=== PATIENT | female | born 2000 | race African-American/Black ===

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

== ENCOUNTER 2020-05-18 07:44 | Emergency (ER) | payer BC, MEDICAID ==
[~2020-05-18] VITALS: Ht 157.5 cm; Wt 52.2 kg
[2020-05-18 07:46] VITALS: BP 108/68
--- NOTE | 2020-05-18 07:56 | NUR ---
ED Nurse Note: Patient from home and walked in due to abd pain with nausea x 2 days. Patient states that her pain is worse after eating meals especially spicy foods. Patient is AAO x4, ambulates with steady gait. No respiratory distress. Calm and cooperative.
[2020-05-18] MEDS ORDERED: Lidocaine 2% Visc 15ml soln ORAL ONE (08:15)
[2020-05-18] MEDS ORDERED: Mylanta II UD 30ml ORAL ONE (08:15)
--- NOTE | 2020-05-18 08:15 | Emergency Room Report ---
History of Present Illness General Chief Complaint: Abdominal Pain Source: Patient Present Illness HPI Patient presents with 2 days of epigastric pain and nausea. She denies vomiting. She has had loose stools that have been the color of what ever she is eating. She denies any hematochezia or bright red blood or melena. She denies dysuria. The pain is rated 9/10 at this time and nonradiating. It feels so mewhat burning. Because she had pain she was taking ibuprofen that was prescribed for tooth operation. The last dose was yesterday. She read that it might be contributing to the pain so she stopped. She denies fevers or chills. She is never been evaluated for this problem before. Patient denies being exposed to COVID-19 positive contacts. Patient is on Depo-Provera. Her menstruation is irregular. She believes she had a fairly normal period a month ago. She denies dysuria or vaginal discharge. The patient states she has anemia. She is taking iron. No sore throat, chest pain, palpitations, shortness of breath, joint pain, rashes, dizziness, headache. Allergies: Coded Allergies: No Known Allergies (Unverified , 01/06/19) COVID-19 Screening Contact w/high risk pt: No Experienced COVID-19 symptoms?: No COVID-19 Testing performed [employer]: Yes - a month ago COVID-19 Screening: Negative COVID-19 COVID-19 Testing Source: [place] Patient History Past Medical History: see triage record, asthma Social History: Reports: drug use - See tox, THC; Denies: smoking, alcohol use Social History Narrative at home with Mom, drove herself to the emergency department Last Menstrual Period: on control Now: No Reviewed Nursing Documentation: PMH: Agreed; PSxH: Agreed Nursing Documentation-PMH Hx Asthma: Yes Review of Systems All Other Systems: negative except mentioned in HPI Physical Exam Vital Signs Date Time Temp Pulse Resp B/P (MAP) Pulse Ox O2 Delivery O2 Flow Rate FiO2 05/18/20 07:46 98.2 65 19 108/68 98 Room Air Sp02 EP Interpretation: reviewed, normal General Appearance: well appearing, no apparent distress, GCS 15 Head: normocephalic Eyes: bilateral eye normal inspection, bilateral eye PERRL, bilateral eye Scleral Injection ENT: moist mucus membranes Neck: supple Respiratory: lungs clear, normal breath sounds Cardiovascular #1: regular rate, rhythm Cardiovascular #2: 2+ radial (R) Gastrointestinal: normal inspection, normal bowel sounds, no mass, non- distended, no guarding, no rebound, tenderness - Epigastric Genitourinary: no CVA tenderness Musculoskeletal: back normal, normal range of motion, gait/station normal Neurologic: alert, oriented x3, grossly normal Psychiatric: mood/affect normal Skin: no rash, warm/dry, other - Slightly pale Medical Decision Making Diagnostic Impression: Primary Impression: Gastritis Qualified Codes: K29.00 - Acute gastritis without bleeding Additional Impression: THC use ER Course Patient presents with epigastric pain with nausea for 2 days. Differential includes gastritis, gallbladder disease, pancreatitis, peptic ulcer disease, UTI amongst others. We need to exclude . Patient evaluated with labs. She has a nonsurgical abdomen at this time and x-rays are not indicated. Low suspicion for COVID-19. Patient will be treated with IV hydration, Pepcid, Zofran, Mylanta and viscous lidocaine. Serial exams indicated. Normal CBC. Of note no evidence of anemia. CMP and lipase normal. Urinalysis clear. negative. Patient improved with treatment. Abdominal pain is resolved. Discussed findings with patient and treatment plan. Patient stable for outpatient observation and treatment. Laboratory Tests Test 05/18/20 08:10 White Blood Count 7.0 K/UL (4.8-10.8) Red Blood Count 4.33 M/UL (4.20-5.40) Hemoglobin 13.6 G/DL (12.0-16.0) Hematocrit 41.1 % (37.0-47.0) Mean Corpuscular Volume 95 FL (80-99) Mean Corpuscular Hemoglobin 31.4 PG (27.0-31.0) H Mean Corpuscular Hemoglobin Concent 33.1 G/DL (32.0-36.0) Red Cell Distribution Width 12.2 % (11.6-14.8) Platelet Count 201 K/UL (150-450) Mean Platelet Volume 8.5 FL (6.5-10.1) Neutrophils (%) (Auto) 62.1 % (45.0-75.0) Lymphocytes (%) (Auto) 24.9 % (20.0-45.0) Monocytes (%) (Auto) 8.0 % (1.0-10.0) Eosinophils (%) (Auto) 4.1 % (0.0-3.0) H Basophils (%) (Auto) 0.8 % (0.0-2.0) Prothrombin Time 10.5 SEC (9.30-11.50) Prothrombin Time INR 0.9 (0.9-1.1) Activated Partial Thromboplast Time 26 SEC (23-33) Urine Color Pale yellow Urine Appearance Clear Urine pH 6 (4.5-8.0) Urine Specific [place] 1.015 (1.005-1.035) Urine Protein Negative (NEGATIVE) Urine Glucose (UA) Negative (NEGATIVE) Urine Ketones Negative (NEGATIVE) Urine Blood Negative (NEGATIVE) Urine Nitrite Negative (NEGATIVE) Urine Bilirubin Negative (NEGATIVE) Urine Urobilinogen Normal MG/DL (0.0-1.0) Urine Leukocyte Esterase Negative (NEGATIVE) Urine HCG, Qualitative Negative (NEGATIVE) Sodium Level 143 MMOL/L (136-145) Potassium Level 4.2 MMOL/L (3.5-5.1) Chloride Level 110 MMOL/L (98-107) H Carbon Dioxide Level 23 MMOL/L (21-32) Anion Gap 10 mmol/L (5-15) Blood Urea Nitrogen 14 mg/dL (7-18) Creatinine 0.9 MG/DL (0.55-1.30) Estimated Glomerular Filtration Rate > 60 mL/min (>60) Glucose Level 73 MG/DL (74-106) L Calcium Level 8.7 MG/DL (8.5-10.1) Total Bilirubin 0.3 MG/DL (0.2-1.0) Aspartate Amino Transferase (AST) 16 U/L (15-37) Alanine Aminotransferase (ALT) 23 U/L (12-78) Alkaline Phosphatase 87 U/L (46-116) Total Protein 7.9 G/DL (6.4-8.2) Albumin 4.3 G/DL (3.4-5.0) Globulin 3.6 g/dL Albumin/Globulin Ratio 1.2 (1.0-2.7) Lipase 159 U/L (73-393) Urine Opiates Screen Negative (NEGATIVE) Urine Barbiturates Screen Negative (NEGATIVE) Phencyclidine (PCP) Screen Negative (NEGATIVE) Urine Amphetamines Screen Negative (NEGATIVE) Urine Benzodiazepines Screen Negative (NEGATIVE) Urine Cocaine Screen Negative (NEGATIVE) Urine Marijuana (THC) Screen Positive (NEGATIVE) H Last Vital Signs Date Time Temp Pulse Resp B/P (MAP) Pulse Ox O2 Delivery O2 Flow Rate FiO2 05/18/20 10:50 97.9 85 20 118/70 97 Room Air Status: improved Disposition: HOME, SELF-CARE Condition: Improved Scripts Ondansetron Odt* (ZOFRAN ODT*) 4 Mg Tab.rapdis 4 MG BC EVERY 8 HOURS, #6 TAB 0 Refills Prov: Antonio Hollins MD 05/18/20 Acetaminophen (Tylenol) 325 Mg Tablet 650 MG ORAL Q6H PRN for Prn Pain/Headache/Temp > 101, #30 TAB 0 Refills Prov: Antonio Hollins MD 05/18/20 Mag Hydrox/Aluminum Hyd/Simeth (Mylanta Maximum Strength Liq) 355 Ml Oral.susp 30 ML PO Q6HR, #240 ML Prov: Antonio Hollins MD 05/18/20 Famotidine* (Pepcid 20mg tablet*) 20 Mg Tablet 20 MG ORAL DAILY for Gerd, #20 TAB 0 Refills Prov: Antonio Hollins MD 05/18/20 Referrals: [facility],REFERRING (PCP) Antonio Hollins MD May 18, 2020 08:15
--- NOTE | 2020-05-18 08:23 | NUR ---
ED Nurse Note: Collected blood and urine then sent.
[2020-05-18 08:29] LABS: APPEARANCE,URINE CLEAR; BASOPHILS % (AUTO) 0.8 % (0.0-2.0); BILIRUBIN, URINE NEGATIVE (NEGATIVE); COLOR,URINE PALE YELLOW; EOSINOPHILS % (AUTO) 4.1 % (0.0-3.0); GLUCOSE, URINE (UA) NEGATIVE (NEGATIVE); HEMATOCRIT 41.1 % (37.0-47.0); HEMOGLOBIN 13.6 G/DL (12.0-16.0); KETONES,URINE NEGATIVE (NEGATIVE); LEUKOCYTE ESTERASE ,URINE NEGATIVE (NEGATIVE); LYMPHOCYTES % (AUTO) 24.9 % (20.0-45.0); MEAN CORPUSCULAR VOLUME 95 FL (80-99); NEUTROPHILS % (AUTO) 62.1 % (45.0-75.0); NITRITE,URINE NEGATIVE (NEGATIVE); PH,URINE 6 (4.5-8.0); PLATELET COUNT 201 K/UL (150-450); PROTEIN,URINE NEGATIVE (NEGATIVE); RED BLOOD COUNT 4.33 M/UL (4.20-5.40); RED CELL DISTRIBUTION WIDTH 12.2 % (11.6-14.8); UROBILINOGEN,URINE NORMAL MG/DL (0.0-1.0)
[2020-05-18 08:35] LABS: INR 0.9 (0.9-1.1)
[2020-05-18 08:42] LABS: ANION GAP 10 mmol/L (5-15); BLOOD UREA NITROGEN 14 mg/dL (7-18); CALCIUM 8.7 MG/DL (8.5-10.1); CARBON DIOXIDE 23 MMOL/L (21-32); CHLORIDE 110 MMOL/L (98-107); CREATININE 0.9 MG/DL (0.55-1.30); POTASSIUM 4.2 MMOL/L (3.5-5.1); SODIUM 143 MMOL/L (136-145)
[2020-05-18 08:46] LABS: ALANINE AMINOTRANSFERASE 23 U/L (12-78); ALBUMIN 4.3 G/DL (3.4-5.0); ALBUMIN/GLOBULIN RATIO 1.2 (1.0-2.7); ALKALINE PHOSPHATASE 87 U/L (46-116); ASPARTATE AMINO TRANSFERASE 16 U/L (15-37); BILIRUBIN,TOTAL 0.3 MG/DL (0.2-1.0)
[2020-05-18 09:37] VITALS: BP_SYST 115; BP_SYST 15; BP_DIAS 65
--- NOTE | 2020-05-18 09:37 | NUR ---
ED Nurse Note: patient is calm and no active vomiting at this time. Patient is using her cellphone with no distress.
[2020-05-18] MEDS ORDERED: ONDANSETRON ODT4 MG BC (10:43)
[2020-05-18] MEDS ORDERED: TYLENOL325 MG ORAL (10:43)
[2020-05-18] MEDS ORDERED: MYLANTA MAXIMU355 ML PO (10:43)
[2020-05-18] MEDS ORDERED: FAMOTIDINE20 MG ORAL (10:43)
[2020-05-18 10:50] VITALS: BP 118/70
--- NOTE | 2020-05-18 10:50 | NUR ---
ER DISCHARGE NOTE: Patient is cleared to be discharged per ERMD, pt is aox4, on room air, with stable vital signs. pt was given dc and prescription instructions, pt was able to verbalize understanding, pt id band and iv site removed without complications. pt is able to ambulate with steady gait. pt took all belongings.
== END 2020-05-18 10:50 | disposition home or self-care (01) ==
LOC: EMR 07:59
DX: K29.70 Gastritis, unspecified, without bleeding (principal); F12.90 Cannabis use, unspecified, uncomplicated; J45.909 Unspecified asthma, uncomplicated
CPT/HCPCS: 36415; 80053; 80307; 81003; 81025; 83690; 85025; 85610; 85730; 96361; 96374; 96375; J2405; J7030; S0028; Z7502; 99284